=== PATIENT | male | born 1990 | race Caucasian/White ===

== ENCOUNTER 2023-06-24 15:15 | Inpatient (IN) | payer OTHER ==
[2023-06-24 15:30] VITALS: BMI 26.5
[2023-06-24] MEDS ORDERED: ACETAMINOPHEN 325 MG TABLET (FP) PO PRN (19:41)
[2023-06-24] MEDS ORDERED: NALOXONE HCL 0.4 MG/ML VIAL IM PRN (19:41)
[2023-06-24] MEDS ORDERED: MAG HYDROX/AL HYDROX/SIMETH 30 ML UNIT-DOSE CUP PO PRN (19:41)
[2023-06-24] MEDS ORDERED: MAGNESIUM HYDROX 2400MG/30ML ORAL SUSPENSION 30 ML CUP PO PRN (19:41)
[2023-06-24] MEDS ORDERED: POLYETHYLENE GLYCOL (HEALTHYLAX) 3350 17 GM PACKET PO PRN (19:41)
[2023-06-24] MEDS ORDERED: guaiFENesin 600 MG TABLET.ER (FP) PO PRN (19:41)
[2023-06-24] MEDS ORDERED: BENZONATATE 200 MG CAPSULE PO PRN (19:41)
[2023-06-24] MEDS ORDERED: NALOXONE HCL (KLOXXADO) 8 MG SPRAY NS PRN (19:41)
[2023-06-24] MEDS ORDERED: BENZOCAINE/MENTHOL (CHLORASEPTIC ) LOZENGE MM PRN (19:41)
[2023-06-24] MEDS ORDERED: LOPERAMIDE HCL 2 MG CAPSULE PO PRN (19:41)
[2023-06-24] MEDS ORDERED: IBUPROFEN 400 MG TABLET (FP) PO PRN (19:41)
[2023-06-24] MEDS: MELATONIN 5 MG TABLETS PO SCH (23:17)
[2023-06-24] MEDS: THIAMINE HCL 100 MG TABLET (FP) PO SCH (23:17)
[2023-06-25] MEDS: PRENATAL VITAMINS W/ FOLIC ACID TABLET (FP) PO SCH (10:02)
[2023-06-25] MEDS ORDERED: TUBERCULIN PPD 5 TU/0.1ML VIAL ID ONE (10:33)
[2023-06-25 10:47] LABS: CHLORIDE 101 mmol/L (98-107); POTASSIUM 3.7 mmol/L (3.5-5.1); SODIUM 138 mmol/L (136-145)
[2023-06-25 10:48] LABS: HEMATOCRIT 41.8 % (35.4-49); HEMOGLOBIN 13.9 GM/dL (11.7-16.9); MCH 29.4 pg (25.7-33.7); MCHC 33.4 g/dl (32.0-35.9); MEAN CELL VOLUME 88.2 fl (80-96); PLATELET COUNT 110 10^3/uL (134-434); RBC 4.74 M/mm3 (4.00-5.60); RDW 16.4 % (11.9-15.9); WHITE BLOOD COUNT 4.2 K/mm3 (4.0-10.0)
[2023-06-25 10:58] LABS: ANION GAP 9 mmol/L (4-13); BLOOD UREA NITROGEN 11.3 mg/dL (7-18); CALCIUM 9.5 mg/dL (8.5-10.1); CO2 28 mmol/L (21-32); GLUCOSE,RANDOM 95 mg/dL (74-106)
[2023-06-25 10:59] LABS: CREATININE 0.8 mg/dL (0.55-1.3); SGPT/ALT 56 U/L (13-61)
[2023-06-25 11:00] LABS: SGOT/AST 72 U/L (15-37); TOT PROT 7.9 g/dl (6.4-8.2)
[2023-06-25 11:01] LABS: BILIRUBIN,TOTAL 1.5 mg/dL (0.2-1)
[2023-06-25 11:02] LABS: ALK PHOS 106 U/L (45-117)
[2023-06-25 11:59] LABS: SYPHILIS W/ RPR CONF NON-REACTIVE (NONREACTIVE)
[2023-06-25] MEDS ORDERED: BACLOFEN 10 MG TABLET (FP) PO PRN (12:49)
[2023-06-25] MEDS ORDERED: NICOTINE 7 MG/24 HOURS TOPICAL PATCH TD SCH (13:00)
[2023-06-25 14:45] LABS: EPI CELLS 6 /uL (0-25.1); HYALINE CASTS 1 /uL (0-3.1); URINE APPEARANCE CLEAR; URINE BACTERIA 4 /uL (0-1359); URINE BILIRUBIN 1+ (NEGATIVE); URINE COLOR DK YELLOW; URINE GLUCOSE (UA) NEGATIVE (NEGATIVE); URINE KETONE TRACE (NEGATIVE); URINE LEUK ESTERASE TRACE (NEGATIVE); URINE NITRITE NEGATIVE (NEGATIVE); URINE PROTEIN TRACE (NEGATIVE); URINE RBC 7 /uL (0-23.9); URINE WBC 7 /uL (0-25.8)
[2023-06-26] MEDS: SERTRALINE HCL 25 MG TABLET (FP) PO SCH (10:14)
[2023-06-26 10:35] LABS: BASO % 1.4 % (0-2.0); EOS % 8.3 % (0-4.5); HEMATOCRIT 38.3 % (35.4-49); HEMOGLOBIN 12.9 GM/dL (11.7-16.9); LYMPH % 37.9 % (8-40); MCH 29.9 pg (25.7-33.7); MCHC 33.6 g/dl (32.0-35.9); MEAN CELL VOLUME 88.8 fl (80-96); MEAN PLT VOLUME 9.1 fl (7.5-11.1); MONO % 6.9 % (3.8-10.2); NEUT % 45.5 % (42.8-82.8); PLATELET COUNT 112 10^3/uL (134-434); RBC 4.31 M/mm3 (4.00-5.60); RDW 16.1 % (11.9-15.9); WHITE BLOOD COUNT 4.4 K/mm3 (4.0-10.0)
[2023-06-26 11:02] LABS: CALCIUM 9.1 mg/dL (8.5-10.1)
[2023-06-26 11:03] LABS: ALBUMIN 3.9 g/dl (3.4-5.0); BLOOD UREA NITROGEN 16.6 mg/dL (7-18)
[2023-06-26 11:07] LABS: BILIRUBIN,TOTAL 1.4 mg/dL (0.2-1); TOT PROT 7.5 g/dl (6.4-8.2)
[2023-06-26 12:09] LABS: INR 0.99 (0.83-1.09); PROTHROMBIN TIME (PATIENT) 11.5 SEC (9.7-13.0)
[2023-06-28] MEDS: FOLIC ACID 1 MG TABLET (FP) PO SCH (10:20)
[2023-06-28] MEDS: FERROUS SO4 325 MG TABLET (FP) PO SCH (10:20)
[2023-06-28] MEDS: PANTOPRAZOLE 40 MG TABLET PO SCH (10:20)
[2023-07-01] MEDS: LACTULOSE 20 GM/30 ML UDC (FOR ORAL USE ONLY) PO SCH (13:36)
[2023-07-05] MEDS: IBUPROFEN 600 MG TABLET (FP) PO PRN (06:49)
[2023-07-06] MEDS: hydrOXYzine PAMOATE 25 MG CAPSULE (FP) PO PRN (05:56)
[2023-07-08 06:45] VITALS: TEMP 97.5
[2023-07-09 07:12] VITALS: BP 129/86; PULSE 55; RESP 17
== END 2023-07-09 10:10 | disposition home or self-care (01) | DRG 772 ==
LOC: YASAS 15:15 → Y3W 22:08
PROVIDERS: ADMIT Allergy & Immunology; ATTEND Psychiatry & Neurology Pain Medicine
PROC: HZ42ZZZ Group Counseling for Substance Abuse Treatment, Cognitive-Behavioral (ICD-10-PCS; principal; 2023-06-24)
DX: F10.20 Alcohol dependence, uncomplicated (principal); F17.210 Nicotine dependence, cigarettes, uncomplicated; F32.A Depression, unspecified; F41.9 Anxiety disorder, unspecified; E72.20 Disorder of urea cycle metabolism, unspecified; G47.00 Insomnia, unspecified; Z87.891 Personal history of nicotine dependence; Z86.73 Personal history of transient ischemic attack (TIA), and cerebral infarction without residual deficits
CPT/HCPCS: 36415; 80053; 80307; 81003; 82140; 85025; 85027; 85610; 86780; 86803; 87635